=== PATIENT | female | born 1965 | race Caucasian/White ===

== ENCOUNTER 2019-05-20 13:23 | Emergency (ER) | payer OTHER, SELFPAY ==
[2019-05-20 13:33] VITALS: BP 137/88; PULSE 79; RESP 16; TEMP 36.3; O2SAT 98
--- NOTE | 2019-05-20 13:42 | ED.URI ---
HPI - URI/Sore Throat General Chief Complaint: Upper Respiratory Infection Stated Complaint: Sore Throat/Cough/Runny Nose Time Seen by Provider: 05/20/19 13:49 Source: patient and RN notes reviewed Mode of arrival: ambulatory Limitations: no limitations History of Present Illness HPI Narrative: 54-year-old female presents with concern for fatigue, general malaise and concern for a white spot on her uvula. Reports symptoms started Monday. She reports low-grade fever. Reports occasional cough, postnasal drainage. MD elicited complaint: cough Related Data Home Medications Medication Instructions Recorded Confirmed acyclovir 800 mg PO DAILY 05/20/19 05/20/19 bupropion HCl 150 mg PO DAILY 05/20/19 05/20/19 cyclobenzaprine 5 mg PO HS 05/20/19 05/20/19 doxycycline hyclate 100 mg PO DIRECTED 05/20/19 05/20/19 gabapentin 300 mg PO DAILY 05/20/19 05/20/19 itraconazole 100 mg PO DAILY 05/20/19 05/20/19 levothyroxine [Synthroid] 150 mcg PO DAILY 05/20/19 05/20/19 montelukast 10 mg PO HS 05/20/19 05/20/19 vortioxetine [Trintellix] 20 mg PO DAILY 05/20/19 05/20/19 Allergies Allergy/AdvReac Type Severity Reaction Status Date / Time No Known Allergies Allergy Verified 05/20/19 13:49 Review of Systems Review of Systems: Narrative: CONSTITUTIONAL: Reports malaise, fatigue and low-grade fever. EYES: Denies visual changes, redness, or discharge. ENT: Reports rhinorrhea, postnasal drainage, scratchy throat. Denies congestion, sinus pain, otalgia and sore throat. CARDIOVASCULAR: Denies chest pain, palpitations, or edema. RESPIRATORY: Reports cough. Denies dyspnea. GASTROINTESTINAL: Denies abdominal pain, nausea, vomiting, diarrhea SKIN: Denies rash or itching. MUSCULOSKELETAL: Reports myalgia. NEUROLOGIC: Denies headache. All systems reviewed & are unremarkable except as noted in HPI and below PMFSH Comments At time of signature, agree with nursing past medical, surgical, social and family history. There is no relevant family history pertinent to the presenting complaint Exam Narrative: Exam Narrative: GENERAL: Well-appearing, well-nourished, and in no acute distress. HEAD: Normocephalic EYES: PERRLA, conjunctivae clear ENT: Nares clear, turbinates erythematous, clear discharge. Mucous membranes moist. TM pearly guerrero with dull light reflex bilaterally; no tragal tenderness. Oropharynx erythematous without lesions. Tonsils not enlarged and without exudate, no drooling, no hoarseness, no trismus. Small amount of exudate on uvula noted NECK: Supple. No lymphadenopathy CHEST: Clear to auscultation, breath sounds equal. No wheezing, rhonchi, rales, or stridor. No respiratory distress, speaks in full sentences. HEART: Regular rate and rhythm. No murmur heard. Normal peripheral pulses. SKIN: Warm, dry, no rash. NEURO: Alert and oriented x3. PSYCH: Normal mood and affect Course Course Emergency Course: Patient is aware of diagnosis, understands and agrees to treatment plan. Anticipatory guidance given. Patient agrees to follow-up as directed and is aware of reasons to seek care at the emergency department. Portions of this record may have been created with voice recognition software Vital Signs Vital signs: Vital Signs Temperature 97.3 F L 05/20/19 13:33 Pulse Rate 79 05/20/19 13:33 Respiratory Rate 16 05/20/19 13:33 Blood Pressure 137/88 05/20/19 13:33 Pulse Oximetry 98 05/20/19 13:33 Temperature 97.3 F L 05/20/19 13:33 Pulse Rate 79 05/20/19 13:33 Respiratory Rate 16 05/20/19 13:33 Blood Pressure 137/88 05/20/19 13:33 Pulse Oximetry 98 05/20/19 13:33 Reviewed. Patient has been instructed to follow up with her primary care provider within the next week regarding her elevated blood pressure today.. MDM - URI/Sore Throat MDM Narrative Medical decision making narrative: Differential diagnosis considered: Strep pharyngitis, allergic rhinitis, upper respiratory tract infection, sinusitis, rhinosinus
== END 2019-05-20 14:10 | disposition home or self-care (01) ==
PROVIDERS: Emergency Provider Nurse Practitioner; PCP Internal Medicine
DX: J06.9 Acute upper respiratory infection, unspecified (principal); E03.9 Hypothyroidism, unspecified
CPT/HCPCS: 87081; 87804; 87880; 99213; G0463

== ENCOUNTER 2020-08-02 12:03 | Emergency (ER) | payer OTHER, SELFPAY ==
--- NOTE | 2020-08-02 12:08 | ED.FEMALEGU ---
HPI - Female Genitourinary General Chief complaint: Urogenital-Female Stated complaint: UTI Time Seen by Provider: 08/02/20 12:15 Source: patient and RN notes reviewed Mode of arrival: ambulatory Limitations: no limitations History of Present Illness HPI Narrative: 55-year-old female presents concern for urinary tract infection. Reports she just returned from a long flight from [place] and began having burning with urination, lower abdominal pressure, hematuria yesterday. She denies fever, abdominal pain, nausea, vomiting, back pain. Denies intervention. MD elicited complaint: UTI Related Data Home Medications Medication Instructions Recorded Confirmed acyclovir 800 mg PO DIRECTED 05/20/19 08/02/20 bupropion HCl 150 mg PO DAILY 05/20/19 08/02/20 gabapentin 300 mg PO DIRECTED 05/20/19 08/02/20 itraconazole 100 mg PO DAILY 05/20/19 08/02/20 levothyroxine [Synthroid] 150 mcg PO DAILY 05/20/19 08/02/20 montelukast 10 mg PO HS 05/20/19 08/02/20 vortioxetine [Trintellix] 20 mg PO DAILY 05/20/19 08/02/20 omega-3 fatty acids 1,000 mg 1,000 mg PO DAILY 07/04/19 08/02/20 capsule estradiol 1 patch TRANSDERMAL DIRECTED 08/02/20 08/02/20 liraglutide (weight loss) [Saxenda] 3 mg SUBCUT DIRECTED 08/02/20 08/02/20 progesterone micronized 200 mg PO DIRECTED 08/02/20 08/02/20 Allergies Allergy/AdvReac Type Severity Reaction Status Date / Time No Known Allergies Allergy Verified 08/02/20 12:11 Review of Systems Review of Systems: Narrative: CONSTITUTIONAL: Denies malaise, chills, sweats, or fever. CARDIOVASCULAR: Denies chest pain, palpitations, or edema. RESPIRATORY: Denies cough or dyspnea. GASTROINTESTINAL: Denies abdominal pain, nausea, vomiting, diarrhea, bloody, or mucous stools. GENITOURINARY: Reports dysuria, suprapubic pressure, hematuria. SKIN: Denies rash or itching. MUSCULOSKELETAL: Denies back pain or myalgia. 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 There is no relevant family history pertinent to the presenting complaint Exam Narrative: Exam Narrative: GENERAL: Well-appearing, well-nourished, and in no acute distress. HEAD: Normocephalic. EYES: PERRLA, conjunctivae clear. NECK: Supple. No lymphadenopathy CHEST: Clear to auscultation. No respiratory distress. HEART: Regular rate and rhythm. ABDOMEN: Soft, nontender upon palpation, nondistended, normal active bowel sounds, no palpable or pulsatile masses, no guarding. No CVA tenderness SKIN: Warm, dry, no rash. NEURO: Alert and oriented x3. PSYCH: Normal mood and affect Course Course Emergency Course: Patient is aware of diagnosis, understands and agrees to treatment plan. Anticipatory guidance given. Patient agrees to follow-up as directed and is aware of reasons to seek care at the emergency department. Portions of this record may have been created with voice recognition software Vital Signs Vital signs: Vital Signs Temperature 97.7 F 08/02/20 12:13 Pulse Rate 85 08/02/20 12:13 Respiratory Rate 16 08/02/20 12:13 Blood Pressure 107/78 08/02/20 12:13 Pulse Oximetry 100 08/02/20 12:13 Temperature 97.7 F 08/02/20 12:17
[2020-08-02 12:13] VITALS: BP 107/78; PULSE 85; RESP 16; TEMP 36.5; O2SAT 100
[2020-08-02 12:17] VITALS: BP 107/78; PULSE 85; RESP 16; TEMP 36.5; O2SAT 100
== END 2020-08-02 12:27 | disposition home or self-care (01) ==
PROVIDERS: Emergency Provider Nurse Practitioner; PCP Internal Medicine
DX: N39.0 Urinary tract infection, site not specified (principal); Z87.891 Personal history of nicotine dependence; E03.9 Hypothyroidism, unspecified
CPT/HCPCS: 81003; 87077; 87086; 87088; 87186; 99213; G0463

== ENCOUNTER 2020-09-24 10:31 | Emergency (ER) | payer OTHER, SELFPAY ==
[2020-09-24 10:38] VITALS: BP 124/74; PULSE 91; RESP 16; TEMP 36.8; O2SAT 99
--- NOTE | 2020-09-24 10:47 | ED.GENADULT ---
HPI - General Adult General Chief complaint: Upper Respiratory Infection Stated complaint: chils/Body aches/sore throat Time Seen by Provider: 09/24/20 10:47 Source: patient and RN notes reviewed Mode of arrival: ambulatory Limitations: no limitations History of Present Illness HPI narrative: 55-year-old female complains of upper respiratory infection, low-grade fever, sore throat, body aches, facial congestion, and facial pain for the past 2 days. Desiree reports increasing symptoms over the past 24 hours with fatigue and chills. Zyrtec-D and Tylenol, last taken on 09/23/2020 without relief. No facial swelling. Denies cough or chest congestion. Rhinorrhea and nasal congestion. Sore throat. Pain bilateral. No high fevers, highest 100F, orally with intermittent chills and no sweats. No drooling or neck or throat swelling. No chest pain or shortness of breath. No exacerbation factors. Denies nausea, vomiting, and abdominal pain. Tolerating liquids well. Remains active. The patient reports she has not been diagnosed with COVID-19. The patient reports she received 2 Moderna COVID-19 vaccines, last June 2020. The patient reports she is not waiting for the results of a COVID-19 lab test. The patient reports she does not have weakness or fatigue. The patient reports she does not have any loss of taste or smell or diarrhea. Denies recent traveling. Denies concerns for COVID-19 or exposures. At this time, the patient is not suspected of having COVID-19. Some parts of this dictation were generated by voice recognition software and may contain typographical and/or grammatical inaccuracies. Related Data Home Medications Medication Instructions Recorded Confirmed acyclovir 800 mg PO DIRECTED 05/20/19 08/02/20 bupropion HCl 150 mg PO DAILY 05/20/19 08/02/20 itraconazole 100 mg PO DAILY 05/20/19 08/02/20 levothyroxine [Synthroid] 150 mcg PO DAILY 05/20/19 08/02/20 montelukast 10 mg PO HS 05/20/19 08/02/20 vortioxetine [Trintellix] 20 mg PO DAILY 05/20/19 08/02/20 omega-3 fatty acids 1,000 mg 1,000 mg PO DAILY 07/04/19 08/02/20 capsule estradiol 1 patch TRANSDERMAL DIRECTED 08/02/20 08/02/20 liraglutide (weight loss) [Saxenda] 3 mg SUBCUT DIRECTED 08/02/20 08/02/20 progesterone micronized 200 mg PO DIRECTED 08/02/20 08/02/20 Adults Multivitamin 09/24/20 methylphenidate HCl [Adhansia XR] mg PO 09/24/20 Allergies Allergy/AdvReac Type Severity Reaction Status Date / Time No Known Allergies Allergy Verified 08/02/20 12:11 Review of Systems Review of Systems: Narrative: CONSTITUTIONAL: Denies sweats. Complains of low-grade fever, chills, fatigue. EYES: Denies visual changes, redness, discharge. ENT: Complains of rhinorrhea, congestion, facial pressure and congestion, sore throat. Denies otalgia. CARDIOVASCULAR: Denies chest pain, palpitations, edema. RESPIRATORY: Denies dyspnea, wheezing, cough. GASTROINTESTINAL: Denies abdominal pain, nausea, vomiting, diarrhea. SKIN: Denies rash or itching. MUSCULOSKELETAL: Denies acute back pain, joint pain, or myalgia. Complaints of body aches. NEUROLOGIC: Denies numbness or focal weakness. PSYCHIATRIC: Denies anxiety or depression. All systems reviewed & are unremarkable except as noted in HPI and below. [facility] Past Medical History Medical History (Updated 09/25/20 @ 00:01 by Gosia Caruso) Depression Trochanteric bursitis, right hip Surgical History Surgical History (Updated 09/24/20 @ 11:04 by MARGARET Mckeon) History of carpal tunnel surgery Left wrist History of hysterectomy 07/2013 Family History Family History (Updated 09/24/20 @ 11:05 by MARGARET Mckeon) Mother Breast cancer Father Hypertension Diabetes mellitus Cerebrovascular accident Skin cancer Dementia Grandparent Diabetes mellitus Cancer Sibling Hypertension Social History Social History (Updated 09/24/20 @ 11:05 by MARGARET Mckeon) Smok
== END 2020-09-24 11:13 | disposition home or self-care (01) ==
PROVIDERS: Emergency Provider Nurse Practitioner Family; PCP Internal Medicine
DX: J02.9 Acute pharyngitis, unspecified (principal); J06.9 Acute upper respiratory infection, unspecified; Z20.822 Contact with and (suspected) exposure to COVID-19; Z87.891 Personal history of nicotine dependence; F32.9 Major depressive disorder, single episode, unspecified
CPT/HCPCS: 87081; 87880; 99213; G0463

== ENCOUNTER 2022-11-16 10:07 | Emergency (ER) | payer OTHER, SELFPAY ==
[2022-11-16 10:27] VITALS: BP 108/71; PULSE 75; RESP 16; TEMP 36.7; O2SAT 98
--- NOTE | 2022-11-16 10:49 | ED.GENADULT ---
HPI - General Adult General Chief complaint: Upper Respiratory Infection Stated complaint: Fatigue/Headache Time Seen by Provider: 11/16/22 10:38 Source: patient and RN notes reviewed Mode of arrival: ambulatory Limitations: no limitations History of Present Illness HPI narrative: 57-year-old female present for complaint of feeling exhausted with headache, body aches, sinus pressure/congestion, cough, fever/chills. States throat and mouth feel dry and ears feel pressure. Onset yesterday. States she has had sinus pressure and congestion for over a week. Endorses her mother tested positive for COVID and she has been exposed. Taking Zyrtec and ibuprofen for symptoms. Denies sob, wheezing, n/v/d. Related Data Home Medications Medication Instructions Recorded Confirmed acyclovir 800 mg tablet 800 mg PO DIRECTED 05/20/19 11/16/22 bupropion HCl 150 mg 24 hr tablet, 150 mg PO DAILY 05/20/19 11/16/22 extended release levothyroxine 150 mcg tablet 150 mcg PO DAILY 05/20/19 11/16/22 (Synthroid) montelukast 10 mg tablet 10 mg PO HS 05/20/19 11/16/22 vortioxetine 20 mg tablet 20 mg PO DAILY 05/20/19 11/16/22 (Trintellix) omega-3 fatty acids 1,000 mg 1,000 mg PO DAILY 07/04/19 11/16/22 capsule (Fish Oil Concentrate) estradiol 0.05 mg/24 hr semiweekly 1 patch transdermal DIRECTED 08/02/20 11/16/22 transdermal patch progesterone micronized 200 mg 200 mg PO DIRECTED 08/02/20 11/16/22 capsule Allergies Allergy/AdvReac Type Severity Reaction Status Date / Time nitrofurantoin Allergy Severe Vomiting Verified 11/16/22 10:12 [From Macrobid] vitamin A [From Retinol] AdvReac Intermediate Rash Verified 11/16/22 10:12 Review of Systems Review of Systems: CONSTITUTIONAL: Endorses malaise, chills, sweats, fever EYES: Denies visual changes, redness, or discharge ENT: Reports rhinorrhea, congestion, sinus pain, otalgia, sore throat CARDIOVASCULAR: Denies chest pain, palpitations, edema RESPIRATORY: Reports cough, post nasal drainage. Denies dyspnea GASTROINTESTINAL: Denies abdominal pain, nausea, vomiting, diarrhea SKIN: Denies rash or itching MUSCULOSKELETAL: Endorses myalgia NEUROLOGIC: endorses headache PMFSH Past Medical History Medical History Anxiety Condyloma Depression Genital herpes simplex type 2 on meds History of endometrial biopsy (01/02/03) IBS (irritable bowel syndrome) Stenosis of cervical spine Trochanteric bursitis, right hip Surgical History Surgical History History of breast biopsy (~2013) right--benign History of carpal tunnel surgery (~12/03/19) Left wrist History of rectopexy (~11/2021) History of total vaginal hysterectomy (~2003) Family History Family History Mother Breast cancer Cholestasis Father Hypertension Diabetes mellitus Cerebrovascular accident Skin cancer Dementia Grandparent Diabetes mellitus paternal grandfather Cancer Carcinoma of colon paternal grandmother Sibling Hypertension Social History Social History Smoking status: Former smoker Tobacco type: cigarettes Second hand tobacco smoke exposure: Yes Smoking end date: 04/03/10 Alcohol intake: current Alcohol use details: Occasional Substance use: current Substance use type: marijuana Other substance usage details: gummie occassional Living arrangements: other Additional living arrangements comments: same sex partner Occupation/Education: occupation 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
== END 2022-11-16 11:17 | disposition home or self-care (01) ==
PROVIDERS: Emergency Provider Nurse Practitioner Family; PCP Internal Medicine
DX: J06.9 Acute upper respiratory infection, unspecified (principal); Z20.822 Contact with and (suspected) exposure to COVID-19; Z87.891 Personal history of nicotine dependence; F41.9 Anxiety disorder, unspecified; F32.A Depression, unspecified; M48.02 Spinal stenosis, cervical region; Z90.710 Acquired absence of both cervix and uterus
CPT/HCPCS: 87426; 87804; 99213; C9803; G0463